=== PATIENT | female | born 1985 | race Caucasian/White ===

== ENCOUNTER 2020-11-30 05:00 | Inpatient (IN) ==
[2020-11-30] MEDS ORDERED: Naloxone 0.4 MG/ML INJ IVP PRN (05:15)
[2020-11-30] MEDS ORDERED: Metoclopramide 10 MG/2 ML VIAL IVP PRN (05:15)
[2020-11-30] MEDS ORDERED: Azithromycin 500 MG in 0.9 % Sodium Chloride 250 ML IVPB ONE (05:15)
[2020-11-30] MEDS ORDERED: Lidocaine 1% 20 ML MDV INFILT PRN (05:15)
[2020-11-30] MEDS ORDERED: *HR* Nalbuphine 10 MG/ML AMPUL IV PRN (05:15)
[2020-11-30] MEDS ORDERED: Ondansetron 4 MG/2 ML VIAL IVP PRN (05:15)
[2020-11-30] MEDS ORDERED: Oxytocin 20 units/ LR 1000 mL 20 UNIT/1,000 ML BAG IVC SCH ×2 (05:15→23:20)
[2020-11-30] MEDS ORDERED: Ringers Solution, Lactated 1,000 ML IVC SCH (05:15)
[2020-11-30] MEDS ORDERED: Famotidine 20 MG/2 ML VIAL IVP PRN (05:15)
[2020-11-30] MEDS: Penicillin G Potassium 5,000,000 UNIT in 0.9 % Sodium Chloride Mini Bag 100 ML IVPB ONE ×2 (05:44→10:25)
[2020-11-30] MEDS: miSOPROStoL 25 MCG TABLET PO PRN ×2 (05:47→10:23)
[2020-11-30 05:51] LABS: Basophils # 0.1 K/mcL (0.0-0.2); Eosinophils # 0.5 K/mcL (0.0-0.6); Eosinophils % 4.6 %; Hematocrit 37.6 % (35.3-44.9); Immature Granulocytes % 0.4 % (0-4); Lymphocytes # 2.1 K/mcL (0.6-4.6); Lymphocytes % 20.7 %; Mean Corpuscular HGB Conc 34.6 g/dL (31.6-35.5); Mean Corpuscular Hemoglobin 32.2 pg (28.0-33.3); Mean Corpuscular Volume 93.1 fL (83.0-100.0); Mean Platelet Volume 12.2 fL (9.4-12.4); Monocytes # 0.6 K/mcL (0.0-1.3); Neutrophils # 6.8 K/mcL (1.6-8.9); Platelet Count 165 K/mcL (140-400); Red Blood Count 4.04 M/mcL (3.82-4.97); Red Cell Distribution Width 13.2 % (11.5-14.5); Segmented Neutrophils % 67.3 %; White Blood Count 10.1 K/mcL (4.3-11.1)
[2020-11-30] MEDS ORDERED: D5% in 0.45% NACL 1,000 ML IVC SCH (06:00)
[2020-11-30 06:09] LABS: Aspartate Amino Transferase 26 Units/L (13-39); BUN/Creatinine Ratio 14 (6-26); Blood Urea Nitrogen 10 mg/dL (6-20); Lactate Dehydrogenase 182 Units/L (140-271); Uric Acid 5.8 mg/dL (2.3-7.6); eGFR For African Americans > 60 (> 60); eGFR For Non-African Americans > 60 (> 60)
[2020-11-30 06:45] LABS: Amphetamine Screen,Urine Negative ng/mL (Cutoff=1000); Barbiturate Screen,Urine Negative ng/mL (Cutoff=200); Benzodiazepines Screen,Urine Negative ng/mL (Cutoff=300); Cannabinoid Screen,Urine Negative ng/mL (Cutoff = 50); Cocaine Screen,Urine Negative ng/mL (Cutoff= 300); Opiate Screen,Urine Negative ng/mL (Cutoff=300); Phencyclidine Screen,Urine Negative ng/mL (Cutoff=25)
[2020-11-30 06:46] LABS: Adenovirus Not Detected (Not Detect); Bordetella Pertussis Not Detected (Not Detect); Chlamydophila pneumoniae Not Detected (Not Detect); Coronavirus 229E Not Detected (Not Detect); Coronavirus HKU1 Not Detected (Not Detect); Coronavirus NL63 Not Detected (Not Detect); Coronavirus OC43 Not Detected (Not Detect); Human Metapneumovirus Not Detected (Not Detect); Human Rhinovirus/Enterovirus Not Detected (Not Detect); Influenza A Subtype 2009 H1 Not Detected (Not Detect); Influenza B Not Detected (Not Detect); Mycoplasma pneumoniae Not Detected (Not Detect); Parainfluenza Virus 1 Not Detected (Not Detect); Parainfluenza Virus 2 Not Detected (Not Detect); Parainfluenza Virus 3 Not Detected (Not Detect); Parainfluenza Virus 4 Not Detected (Not Detect); Respiratory Syncytial Virus Not Detected (Not Detect); SARS-CoV-2 Not Detected (Not Detect)
[2020-11-30] MEDS ORDERED: EPHEDrine 50 MG/ML VIAL IVP PRN (08:59)
[2020-11-30] MEDS ORDERED: Epidural Premix (fent/bupiv) 110 ML EP SCH (09:00)
[2020-11-30 10:19] LABS: Protein/Creatinine Ratio,Urine 0.47 mg/mg (0.00-0.20)
[2020-11-30] MEDS ORDERED: miSOPROStoL 100 MCG TABLET RC ONE (13:02)
[2020-11-30] MEDS ORDERED: Ropivacaine/PF 0.2% 20 ML VIAL ONE (14:21)
[2020-11-30] MEDS ORDERED: *HR* FentaNYL (PF) 100 MCG/2 ML VIAL ONE (14:21)
[2020-11-30 14:59] LABS: Alanine Aminotransferase 22 Units/L (7-52)
[2020-11-30] MEDS: Penicillin G Potassium 2,500,000 UNIT/105 ML MLS IVPB SCH ×2 (15:08→18:14)
[2020-11-30] MEDS ORDERED: Acetaminophen 325 MG TABLET PO ONE (21:22)
[2020-11-30] MEDS ORDERED: Benzocaine/Menthol 56 GM AEROSOL SPRAY TP PRN (23:20)
[2020-11-30] MEDS ORDERED: Rho Immune Globulin 1,500 UNIT SYRINGE IM PRN (23:20)
[2020-11-30] MEDS ORDERED: Lanolin 7 G OINT...G. TP PRN (23:20)
[2020-11-30] MEDS: Ibuprofen 600 MG TABLET PO SCH (23:45)
[2020-12-01 04:45] LABS: Protein/Creatinine Ratio,Urine 1.87 mg/mg (0.00-0.20)
[2020-12-01 04:51] LABS: Basophils # 0.1 K/mcL (0.0-0.2); Basophils % 0.5 %; Eosinophils # 0.1 K/mcL (0.0-0.6); Eosinophils % 0.4 %; Hematocrit 32.1 % (35.3-44.9); Immature Granulocytes % 0.4 % (0-4); Lymphocytes % 9.9 %; Mean Corpuscular HGB Conc 34.6 g/dL (31.6-35.5); Mean Corpuscular Hemoglobin 32.8 pg (28.0-33.3); Mean Platelet Volume 12.3 fL (9.4-12.4); Monocytes # 1.2 K/mcL (0.0-1.3); Monocytes % 5.9 %; Neutrophils # 16.7 K/mcL (1.6-8.9); Platelet Count 142 K/mcL (140-400); Red Blood Count 3.38 M/mcL (3.82-4.97); Red Cell Distribution Width 13.3 % (11.5-14.5); Segmented Neutrophils % 82.9 %
[2020-12-01 04:55] LABS: Hemoglobin 11.1 g/dL (11.5-15.4); White Blood Count 20.1 K/mcL (4.3-11.1)
[2020-12-01 04:56] LABS: Alanine Aminotransferase 26 Units/L (7-52); Aspartate Amino Transferase 50 Units/L (13-39); BUN/Creatinine Ratio 11 (6-26); Blood Urea Nitrogen 10 mg/dL (6-20); Lactate Dehydrogenase 322 Units/L (140-271); Uric Acid 6.5 mg/dL (2.3-7.6); eGFR For African Americans > 60 (> 60); eGFR For Non-African Americans > 60 (> 60)
[2020-12-01] MEDS: Acetaminophen 325 MG TABLET PO SCH ×3 (06:50→17:13)
[2020-12-01] MEDS: Ibuprofen 600 MG TABLET PO SCH ×3 (06:51→17:12)
[2020-12-01] MEDS: miSOPROStoL 100 MCG TABLET PO SCH ×4 (07:57→20:51)
[2020-12-01] MEDS: Prenatal Vit/FA 1 EACH TABLET PO SCH (07:57)
[2020-12-02 04:29] LABS: Basophils # 0.1 K/mcL (0.0-0.2); Basophils % 0.7 %; Eosinophils # 0.4 K/mcL (0.0-0.6); Eosinophils % 3.5 %; Hemoglobin 9.7 g/dL (11.5-15.4); Immature Granulocytes % 0.3 % (0-4); Lymphocytes # 2.5 K/mcL (0.6-4.6); Lymphocytes % 23.5 %; Mean Corpuscular HGB Conc 33.4 g/dL (31.6-35.5); Mean Corpuscular Hemoglobin 31.9 pg (28.0-33.3); Mean Corpuscular Volume 95.4 fL (83.0-100.0); Mean Platelet Volume 11.5 fL (9.4-12.4); Monocytes # 0.7 K/mcL (0.0-1.3); Monocytes % 6.5 %; Neutrophils # 6.8 K/mcL (1.6-8.9); Platelet Count 127 K/mcL (140-400); Red Blood Count 3.04 M/mcL (3.82-4.97); Red Cell Distribution Width 13.6 % (11.5-14.5); Segmented Neutrophils % 65.5 %; White Blood Count 10.4 K/mcL (4.3-11.1)
[2020-12-02 04:32] LABS: Alanine Aminotransferase 26 Units/L (7-52); Aspartate Amino Transferase 46 Units/L (13-39); BUN/Creatinine Ratio 14 (6-26); Blood Urea Nitrogen 11 mg/dL (6-20); Lactate Dehydrogenase 252 Units/L (140-271); Uric Acid 6.1 mg/dL (2.3-7.6); eGFR For African Americans > 60 (> 60); eGFR For Non-African Americans > 60 (> 60)
[2020-12-02] MEDS: Ibuprofen 600 MG TABLET PO SCH ×2 (05:31→11:52)
[2020-12-02] MEDS: Acetaminophen 325 MG TABLET PO SCH ×2 (07:38→11:52)
[2020-12-02] MEDS: miSOPROStoL 100 MCG TABLET PO SCH ×2 (07:39→11:52)
[2020-12-02] MEDS: Prenatal Vit/FA 1 EACH TABLET PO SCH (07:39)
[2020-12-02 07:57] VITALS: BP 127/77
== END 2020-12-02 13:03 | disposition home or self-care (01) | DRG 768 ==
LOC: 1NENULAB 05:14 → 1NENUOBS 23:58
PROVIDERS: ADMIT Obstetrics & Gynecology; ATTEND Obstetrics & Gynecology